=== PATIENT | female | born 1985 | race Caucasian/White ===

== ENCOUNTER 2020-04-22 19:19 | Emergency (ER) | payer BC ==
[2020-04-22] MEDS ORDERED: Lidocaine 1% 10 ML MDV INJECT ONE (19:33)
--- NOTE | 2020-04-22 19:40 | EDM.PDOC ---
ED HPI GENERAL MEDICAL PROBLEM - General Chief Complaint: Laceration Stated Complaint: RT INDEX FINGER LAC Time Seen by Provider: 04/22/20 19:29 Source of Information: Reports: Patient, RN Notes Reviewed History Limitations: Reports: No Limitations - History of Present Illness INITIAL COMMENTS - FREE TEXT/NARRATIVE: Patient is a 35-year-old female who presents to the ED for the evaluation of her right index finger laceration. The patient notes that she was working with a saw, when it "kicked back", and this resulted in a roughly 2 cm linear laceration to the anterior aspect of the DIP joint. Patient is still can flex and extend her finger without much difficulty. There is minimal bleeding noted. Skin around the area does appear to be quite dirty however she states that she had her last Tdap about 1-1/2 years ago. She denies any numbness and tingling distal to the injury. Patient is right hand dominant. - Related Data Allergies Allergy/AdvReac Type Severity Reaction Status Date / Time No Known Allergies Allergy Verified 04/22/20 19:28 Home Meds: Home Meds . [No Known Home Meds] 04/22/20 [History] Past Medical History - Past Health History Medical/Surgical History: Denies Medical/Surgical History ED ROS GENERAL - Review of Systems Review Of Systems: Comprehensive ROS is negative, except as noted in HPI. ED EXAM, SKIN/RASH Exam: See Below Exam Limited By: No Limitations General Appearance: Alert, WD/WN, No Apparent Distress Respiratory/Chest: No Respiratory Distress, Lungs Clear, Normal Breath Sounds, No Accessory Muscle Use, Chest Non-Tender Cardiovascular: Normal Peripheral Pulses, Regular Rate, Rhythm, No Murmur Extremities: Normal Inspection (with exception of right index finger laceration) , Normal Range of Motion, Non-Tender, Normal Capillary Refill Neurological: Alert, Oriented, Normal Cognition, No Motor/Sensory Deficits Psychiatric: Normal Affect, Normal Mood Skin: Warm, Dry, Normal Color, No Rash, Wound/Incision (2 cm linear laceration noted to the anterior aspect of the DIP of the second digit on the right hand. No active bleeding noted.) ED SKIN PROCEDURES - Laceration/Wound Repair Right Anterior Distal Digit - 2nd (Index) Appearance: Superficial, Linear, Clean Distal NVT: Neuro & Vascular Intact, No Tendon Injury Anesthetic Type: Local Local Anesthesia - Lidocaine (Xylocaine): 1% Plain Local Anesthetic Volume: 4cc Skin Prep: Chlorhexidine (Hibiciens), Saline Exploration/Debridement/Repair: Wound Explored, In a Bloodless Field, Explored to Base, No Foreign Material Found Closed with: Sutures Lac/Wound length In cm: 2 Suture Size: 4-0 # of Sutures: 7 Suture Type: Prolene, Interrupted, Simple Sterile Dressing Applied: Nurse Tetanus Status Addressed: Yes Complications: No Course - Vital Signs Last Recorded V/S: Last Vital Signs Temp 96.6 F L 04/22/20 19:28 Pulse 78 04/22/20 19:28 Resp 19 04/22/20 19:28 BP 113/93 H 04/22/20 19:28 Pulse Ox 99 04/22/20 19:28 - Orders/Labs/Meds Meds: Medications Discontinued Medications Generic Name Dose Route Start Last Admin Trade Name Marianne PRN Reason Stop Dose Admin Lidocaine HCl 10 ml 04/22/20 19:33 Xylocaine 1% INJECT 04/22/20 19:34 ONETIME ONE Departure - Departure Time of Disposition: 19:39 Disposition: Home, Self-Care 01 Condition: Good Clinical Impression: Laceration of index finger without damage to nail Qualifiers: Encounter type: initial encounter Foreign body presence: without foreign body Laterality: right Qualified Code(s): S61.210A - Laceration without foreign body of right index finger without damage to nail, initial encounter - Discharge Information *PRESCRIPTION DRUG MONITORING PROGRAM REVIEWED*: No *COPY OF PRESCRIPTION DRUG MONITORING REPORT IN PATIENT LEDY: No Instructions: Sutured Wound Care, [id number] Referrals: PCP,None [Primary Care Provider] - Forms: ED Department Discharge Additional Instructions: You have been evaluated in the ED for your laceration. Sutures will need to stay in for 10-14 days (05/02-05/06) You may return to the ED or any clinic for removal. Please keep this area clean and dry, you may cleanse with regular soap and water. No vigorous scrubbing. Watch out for signs of infection like increased redness, swelling, pain at the laceration site, or if you should develop any fevers or chills. Please return to ED if your symptoms change or worsen. Sepsis Event Note - Evaluation Sepsis Screening Result: No Definite Risk - Focused Exam Vital Signs: Vital Signs Temp Pulse Resp BP Pulse Ox 05/31/20 19:28 96.6 F L 78 19 113/93 H 99 Date Exam was Performed: 04/22/20 Time Exam was Performed: 21:33
== END 2020-04-22 20:30 | disposition home or self-care (01) ==
LOC: JD.ED 19:19
DX: S61.210A Laceration without foreign body of right index finger without damage to nail, initial encounter (principal); W22.8XXA Striking against or struck by other objects, initial encounter
CPT/HCPCS: 12001; 99282